=== PATIENT | male | born 1960 | race Caucasian/White ===

== ENCOUNTER → 2017-06-09 | Outpatient (CLI) | payer OTHER ==
[~2017-06-09] MED LIST: AMLODIPINE-BEN1 EAC5 PO; ASPIRIN EC81 M1 PO; ATORVASTATIN CA40 MG PO; BACTROBAN NASAL1 GM NASAL; BENICAR20 MG PO; HYDROCHLOROTHIA25 M1 PO; LOPRESSOR 50 MG50 M1 PO
[2017-06-09 08:12] LABS: CREATININE 1.2 mg/dL (0.7-1.3)
== END ==
LOC: CAT 07:45
PROVIDERS: Internal Medicine Cardiovascular Disease
DX: Z01.812 Encounter for preprocedural laboratory examination (principal); I71.2 Thoracic aortic aneurysm, without rupture; I25.10 Atherosclerotic heart disease of native coronary artery without angina pectoris; R91.1 Solitary pulmonary nodule

== ENCOUNTER → 2020-01-16 | Outpatient (CLI) | payer OTHER | LOC: SJCVCIMAG 09:38 | PROVIDERS: ATTEND Internal Medicine Cardiovascular Disease | DX: I08.0 Rheumatic disorders of both mitral and aortic valves (principal); I27.20 Pulmonary hypertension, unspecified; I11.9 Hypertensive heart disease without heart failure; I71.2 Thoracic aortic aneurysm, without rupture; I25.10 Atherosclerotic heart disease of native coronary artery without angina pectoris; I25.41 Coronary artery aneurysm; E78.00 Pure hypercholesterolemia, unspecified; Z72.0 Tobacco use ==

== ENCOUNTER → 2020-01-31 | Outpatient (CLI) | payer OTHER | LOC: CAT 08:01 | PROVIDERS: ATTEND Internal Medicine Cardiovascular Disease | DX: Z13.6 Encounter for screening for cardiovascular disorders (principal); I25.10 Atherosclerotic heart disease of native coronary artery without angina pectoris; E78.00 Pure hypercholesterolemia, unspecified ==

== ENCOUNTER → 2020-11-03 | Outpatient (CLI) | payer OTHER | LOC: SJCVCIMAG 10-09 16:25 | PROVIDERS: ATTEND Internal Medicine Cardiovascular Disease | DX: I10 Essential (primary) hypertension (principal); E78.5 Hyperlipidemia, unspecified ==